=== PATIENT | male | born 1980 | race Hispanic/Latino ===

== ENCOUNTER 2017-10-05 05:50 | Emergency (ER) | payer OTHER ==
[2017-10-05] MEDS ORDERED: Meclizine HCl 25 MG TAB ONE (07:21)
[2017-10-05] MEDS ORDERED: Aspirin 325 MG TAB ONE (07:21)
[2017-10-05 07:28] LABS: #Basophils 0.1 thou/uL (0.0-0.2); #Eosinphils 0.2 thou/uL (0.0-0.7); #Lymphocytes 2.3 thou/uL (1.20-3.40); #Monocytes 0.7 thou/uL (0.11-0.59); #Neutrophils 5.5 thou/uL (1.40-6.50); %Lymphocytes 26.5 % (21.0-51.0); %Monocytes 7.5 % (0.0-10.0); Hemoglobin 10.7 g/dL (14.0-18.0); Mean Corpuscular HGB CONC 34.9 g/dL (32.0-36.0); Mean Corpuscular Hemoglobin 33.3 pg (27.0-31.0); Mean Corpuscular Volume 95.4 fl (80.0-94.0); Platelet Count 337 thou/uL (130-400); RBC Distribution Width 12.2 % (11.5-14.5); Red Blood Cell (RBC) Count 3.21 mill/uL (4.70-6.10); White Blood Cell (WBC) Count 8.8 thou/uL (4.8-10.8)
[2017-10-05 07:46] LABS: ALT (SGPT) 12 U/L (8-55); AST (SGOT) 13 U/L (5-34); Albumin 3.3 g/dL (3.5-5.0); Alkaline Phosphatase 99 U/L (40-150); Anion Gap 16 mmol/L (10-20); BUN (Urea Nitrogen) 75 mg/dL (8.9-20.6); Bilirubin, Total 0.2 mg/dL (0.2-1.2); Calc. Creatinine Clearance 0 mL/min (70-130); Calcium 7.5 mg/dL (7.8-10.44); Carbon Dioxide 22 mmol/L (22-29); Chloride 102 mmol/L (98-107); Estimated GFR-MDRD 14; Globulin 3.8 g/dL (2.4-3.5); Glucose 126 mg/dL (70-105); Potassium 3.8 mmol/L (3.5-5.1); Protein, Total 7.1 g/dL (6.0-8.3); Sodium 136 mmol/L (136-145)
[2017-10-05 07:56] LABS: Troponin I Less than 0.010 ng/mL (< 0.028)
--- NOTE | 2017-10-05 09:26 | CT ---
PRELIMINARY REPORT/[facility]/EMERGENTY AFTER-HOURS PROCEDURE EXAM: CT Head Without Intravenous Contrast EXAM DATE/TIME: 10/05/2017 6:26 AM CLINICAL HISTORY: 37 years old, male; Signs and symptoms; Dizziness; Additional info: Yo prisca presents to ed C/O dizziness since 16: 31 yesterday. Pt reports that he was walking yesterday and felt dizzy as well as like his l leg was dragging. Reports tingling on l side as well as slurred speech, headache, and twitching on l side. Denies sore throat, runny nose, cough, or congestion. Denies n/v/d, denies const ipation. Denies urinary complaints. TECHNIQUE: Axial computed tomography images of the head/brain without intravenous contrast. COMPARISON: No relevant prior studies available. FINDINGS: Brain: Prominent sulci. Patchy hypodensity of the cerebral white matter which are nonspecific but lik sreekanth secondary to microangiopathic changes. Bilateral basal ganglia and thalamic lacunes are present. No hemorrhage. Ventricles: The ventricles are prominent secondary to diffuse volume loss/atrophy. Bones/joints: Unremarkable. No acute fracture. Soft tissues: Unremarkable. Sinuses: Unremarkable as visualized. No acute sinusitis. Mastoid air cells: Unremarkable as visualized. No mastoid effusion. IMPRESSION: Chronic age related changes but no evidence of acute intracranial pathology. Thank you for allowing us to participate in the care of your patient. Dictated and Authenticated by: Radha Tavera MD 10/05/2017 6:53 AM Central Time ([place] & [place]) FINAL REPORT EMERGENCY AFTER HOURS BRAIN CT WITHOUT IV CONTRAST: Date: 10/05/17 Time: 0627 hours FINDINGS: There is some motion artifact. No mass, bleed, or other acute process. Report in agreement with preliminary report given on-call by [facility]. POS: [facility]
[2017-10-05] MEDS ORDERED: Acetaminophen 325 MG TAB ONE (10:43)
--- NOTE | 2017-12-04 16:12 | EKG ---
Test Reason : Blood Pressure : / mmHG Vent. Rate : 094 BPM Atrial Rate : 094 BPM P-R Int : 126 ms QRS Dur : 090 ms QT Int : 392 ms P-R-T Axes : 028 024 038 degrees QTc Int : 490 ms Normal sinus rhythm Nonspecific ST and T wave abnormality Prolonged QT Abnormal ECG Confirmed by ÓSCAR ROMEO, LISSA ([id number]), supervising film or videotape editor CAMILO GARCIA ([id number]) on 12/04/2017 4:11:27 PM Referred By: Confirmed By:LISSA CANTRELL MD
== END 2017-10-05 12:00 | disposition short-term general hospital (02) ==
LOC: ERS 05:50
DX: I63.9 Cerebral infarction, unspecified (principal); I12.9 Hypertensive chronic kidney disease with stage 1 through stage 4 chronic kidney disease, or unspecified chronic kidney disease; E11.22 Type 2 diabetes mellitus with diabetic chronic kidney disease; N18.9 Chronic kidney disease, unspecified; Z79.899 Other long term (current) drug therapy; Z79.4 Long term (current) use of insulin
CPT/HCPCS: 36415; 36416; 70450; 80053; 82553; 84484; 85025; 93005

== ENCOUNTER 2017-10-27 13:51 | Emergency (ER) | payer OTHER ==
--- NOTE | 2017-10-27 14:16 | CT ---
HEAD CT NONCONTRAST: Date: 10/27/17 INDICATION: Left-sided weakness. COMPARISON: 10/05/17. FINDINGS: Motion artifact distorts detail, thus limiting evaluation. Ventricular system is stable in size. Ther e is stable remote lacunar infarction involving the posterolateral right thalamus and posteromedial l eft thalamus. Stable lacunar infarction abuts the anterior aspect of the left head of the caudate nuc leus and extends posteriorly along the external capsule and into the posterior aspect of the left diya tiform nucleus. There is no acute intracranial hemorrhage, mass effect, or midline shift. Stable hypo density involves the posteromedial and right cerebellar hemisphere indicating lacunar infarct. Pavel c isterna magna is present. IMPRESSION: 1. Multifocal stable chronic lacunar infarction. 2. Evaluation is limited by motion, although no acute intracranial hemorrhage or mass effect. Telephone call findings placed to ER physician, Teresa Weiss, at 1359 hours, 10/27/17. CODE CR. POS: [facility]
[2017-10-27 14:18] LABS: #Basophils 0.1 thou/uL (0.0-0.2); #Eosinphils 0.2 thou/uL (0.0-0.7); #Lymphocytes 1.6 thou/uL (1.20-3.40); #Monocytes 0.6 thou/uL (0.11-0.59); #Neutrophils 7.1 thou/uL (1.40-6.50); %Basophils 1.2 % (0.0-1.0); %Eosinophils 2.4 % (0.0-10.0); %Lymphocytes 16.7 % (21.0-51.0); %Monocytes 6.6 % (0.0-10.0); %Neutrophils 73.2 % (42.0-75.0); Hemoglobin 8.6 g/dL (14.0-18.0); Mean Corpuscular HGB CONC 33.3 g/dL (32.0-36.0); Mean Corpuscular Hemoglobin 31.8 pg (27.0-31.0); Mean Corpuscular Volume 95.8 fl (80.0-94.0); Mean Platelet Volume 7.9 fL (7.4-10.4); Platelet Count 413 thou/uL (130-400); RBC Distribution Width 12.1 % (11.5-14.5); Red Blood Cell (RBC) Count 2.71 mill/uL (4.70-6.10); White Blood Cell (WBC) Count 9.7 thou/uL (4.8-10.8)
[2017-10-27] MEDS ORDERED: Acetaminophen 500 MG TAB ONE (14:22)
[2017-10-27 14:26] LABS: INR-International Normal Ratio 1.1; PTT 33.8 SEC (22.9-36.1); Prothrombin Time 14.5 SEC (12.0-14.7)
[2017-10-27 14:30] LABS: ALT (SGPT) 15 U/L (8-55); AST (SGOT) 25 U/L (5-34); Albumin 3.1 g/dL (3.5-5.0); Alkaline Phosphatase 102 U/L (40-150); Anion Gap 11 mmol/L (10-20); BUN (Urea Nitrogen) 63 mg/dL (8.9-20.6); Bilirubin, Total 0.2 mg/dL (0.2-1.2); Calc. Creatinine Clearance 0 mL/min (70-130); Calcium 7.7 mg/dL (7.8-10.44); Carbon Dioxide 22 mmol/L (22-29); Chloride 108 mmol/L (98-107); Estimated GFR-MDRD 16; Globulin 3.7 g/dL (2.4-3.5); Glucose 115 mg/dL (70-105); Potassium 5.2 mmol/L (3.5-5.1); Protein, Total 6.8 g/dL (6.0-8.3); Sodium 136 mmol/L (136-145)
[2017-10-27 14:34] LABS: Troponin I Less than 0.010 ng/mL (< 0.028)
[2017-10-27 14:36] LABS: CKMB 10.7 ng/mL (0-6.6)
[2017-10-27 14:50] LABS: Bilirubin Negative (Negative); Blood, Urine Moderate (Negative); Clarity CLEAR (Clear); Glucose, Urine (Dipstick) 100 mg/dL (Negative); Leukocyte Negative (Negative); Nitrite Negative (Negative); Protein, Urine (Dipstick) 300 mg/dL (Neg-Trace); Specific Gravity, Urine 1.012 (1.002-1.036); Urobilinogen 0.2 mg/dL (0.2-1.0)
[2017-10-27 14:52] LABS: Bacteria/HPF None Seen HPF (None Seen); Hyaline Casts/LPF 0-3 HYALINE CAST LPF (0-3 Hyaline); Pathc Cast-AUWi Flag 0.14 (0-2.49); Squamous Epithelial 0-3 HPF (0-3); WBC/HPF 0-3 HPF (0-3)
[2017-10-27 14:59] LABS: Amphetamine Not Detected (NotDetected); Barbiturates Screen Not Detected (NotDetected); Benzodiazepine Screen Not Detected (NotDetected); Cocaine Metabolite Screen Not Detected (NotDetected); Medtox Control Line Valid? VALID (VALID); Medtox Reader # READER 4; Methadone Not Detected (NotDetected); Methamphetamine Not Detected (NotDetected); Opiate Screen Not Detected (NotDetected); Oxycodone Screen Not Detected (NotDetected); Phencyclidine (PCP) Not Detected (NotDetected); THC/Cannabinoid Screen Not Detected (NotDetected); Tricyclic Screen Not Detected (NotDetected)
--- NOTE | 2017-10-27 15:03 | RAD ---
SINGLE VIEW CHEST: Date: 10/27/17 COMPARISON: None. HISTORY: Stroke-like symptoms. FINDINGS: Single view of the chest shows a normal sized cardiomediastinal silhouette. There is no evidence of c onsolidation, mass, or pleural effusion. There are degenerative changes of the spine. IMPRESSION: No evidence of acute cardiopulmonary disease. POS: [facility]
[2017-10-27] MEDS ORDERED: Metoprolol Tartrate 50 MG TAB ONE (17:39)
[2017-10-27] MEDS ORDERED: Amlodipine 10 MG TAB PO SCH (18:00)
== END 2017-10-28 00:28 | disposition short-term general hospital (02) ==
LOC: ERS 13:51
DX: R41.82 Altered mental status, unspecified (principal); R47.81 Slurred speech; R53.1 Weakness; E11.9 Type 2 diabetes mellitus without complications; I10 Essential (primary) hypertension; F41.9 Anxiety disorder, unspecified; Z79.82 Long term (current) use of aspirin; Z79.899 Other long term (current) drug therapy; Z79.4 Long term (current) use of insulin
CPT/HCPCS: 36415; 36416; 70450; 71045; 80053; 80306; 81003; 81015; 82553; 83880; 84484; 85025; 85610; 85730; 93005